=== PATIENT | male | born 2005 | race Caucasian/White ===

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

== ENCOUNTER 2024-06-23 14:11 | Emergency (ER) | payer OTHER ==
[2024-06-23 14:30] VITALS: TEMP 97.8
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
[2024-06-23] MEDS: KETOROLAC 15 MG/ML 1 ML VIAL IM STA (15:12)
[2024-06-23] MEDS: ORPHENADRINE 30 MG/ML 2 ML VIAL IM STA (15:12)
[2024-06-23] MEDS: LIDOCAINE 4% PATCH TOPICAL ONE (15:13)
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
[2024-06-23] MEDS: ACET/COD 300 MG/30 MG STARTER PACK 6 TAB BTL PO STA (16:21)
[2024-06-23 16:29] VITALS: BP 135/69; PULSE 68; RESP 18
== END 2024-06-23 16:29 | disposition home or self-care (01) ==
LOC: EC 14:11
DX: M54.50 Low back pain, unspecified (principal); F17.200 Nicotine dependence, unspecified, uncomplicated; Z91.030 Bee allergy status; V89.2XXA Person injured in unspecified motor-vehicle accident, traffic, initial encounter
CPT/HCPCS: 72128; 72125; 72131; 99284; 96372; J2360; J1885